=== PATIENT | female | born 1980 | race Caucasian/White ===

== ENCOUNTER 2017-07-08 14:42 | Emergency (ER) | payer OTHER ==
[~2017-07-08] VITALS: Ht 162.6 cm; Wt 120.1 kg
[~2017-07-08 14:42] MED LIST: METFORMIN HCL1000 MG PO; MICRONASE5 MG PO; MOTRIN800 MG PO
[2017-07-08 15:21] LABS: POINT-OF-CARE METER ID UU13113778
[2017-07-08 16:48] LABS: HEMATOCRIT 42.1 % (36.0-46.0); MCH 29.4 PG (29.0-34.0); MCHC 32.8 G/DL (30.0-36.0); MCV 89.8 FL (83-99); MEAN PLAT.VOLUME 10.8 uM^3 (9.5-12.4); PLATELET COUNT 260 K/uL (156-360); RBC DIS.WIDTH-CV 13.1 % (11.8-14.6); RBC DIS.WIDTH-SD 42.6 % (39-53); RED BLOOD COUNT 4.69 M/uL (3.80-5.20); WHITE BLOOD COUNT 11.3 K/uL (4.1-10.2)
[2017-07-08] MEDS ORDERED: GLIPIZIDE10 MG PO (16:50)
[2017-07-08] MEDS ORDERED: RASUVO 2525 MG/0.5 IM (16:51)
[2017-07-08] MEDS ORDERED: METHADONE HCL40 MG PO (16:52)
[2017-07-08 17:02] LABS: CHLORIDE 99 mEq/L (99-109); POTASSIUM 4.2 mEq/L (3.7-5.4); SODIUM 134 mEq/L (136-147)
[2017-07-08 17:03] LABS: ADD MIUA? NO; BILIRUBIN NEGATIVE; BLOOD NEGATIVE; COLOR YELLOW ((YELLOW)); GLUCOSE (STRIP) >=500; KETONES NEGATIVE; LEUKOCYTES NEGATIVE; NITRITE NEGATIVE; PROTEIN (STRIP) NEGATIVE; SPECIFIC GRAVITY 1.026 (1.000-1.030); UROBILINOGEN 0.2 MG/DL (0.2-1.0)
[2017-07-08 17:04] LABS: GLUCOSE 267 mg/dL (70-99)
[2017-07-08 17:05] LABS: ANION GAP 10 MEQ/L (2-14)
[2017-07-08 17:08] LABS: GFR ESTIMATE (CALCULATED) > 59 mL/min/; UREA NITROGEN (BUN) 9 mg/dL (9-23)
[2017-07-08 17:18] LABS: QUANTITATIVE HCG < 4.0 MIU/ML
[2017-07-08 22:25] VITALS: BP 0/0
== END 2017-07-08 22:25 | disposition home or self-care (01) ==
LOC: EME 14:42
PROVIDERS: Nurse Practitioner Family
DX: G43.909 Migraine, unspecified, not intractable, without status migrainosus (principal); R42 Dizziness and giddiness; R20.0 Anesthesia of skin; E11.9 Type 2 diabetes mellitus without complications; Z79.84 Long term (current) use of oral hypoglycemic drugs; F17.200 Nicotine dependence, unspecified, uncomplicated
CPT/HCPCS: 70450; 80048; 81003; 82948; 84702; 85027; 99281; 99285; J1200; J1885; J2765; J7030; J7050